=== PATIENT | female | born 1990 | race Caucasian/White ===

== ENCOUNTER 2024-03-09 16:18 | Emergency (ER) | payer OTHER ==
[~2024-03-09] VITALS: Ht 162.6 cm; Wt 108.0 kg
[~2024-03-09 16:18] MED LIST: AMOX250 PO; Ativan1 MG PO; BUPR75 PO; CEPH500 PO; CODACE30 PO; CRUTCH4 USE; DICY20 PO; FLUO20; HYDACE5 PO; Percocet 5-3251 EACH PO; RXSULTRIDS PO; SULTRIDS PO; TRIM250 PO
[2024-03-09] MEDS ORDERED: PROZAC40 MG PO (16:31)
[2024-03-09] MEDS ORDERED: METFORMIN HCL500 M3 PO (16:31)
[2024-03-09] MEDS ORDERED: ROSUVASTATIN CAL5 MG PO (16:31)
[2024-03-09] MEDS ORDERED: Inderal 20 mg T20 MG PO (16:32)
[2024-03-09] MEDS ORDERED: Metoclopramide HCl 5MG / ML 2ML Vial IV ONE (16:45)
[2024-03-09] MEDS ORDERED: Ketorolac Tromethamine 30mg Vial IV ONE (16:45)
[2024-03-09 17:36] VITALS: BP 109/67
== END 2024-03-09 17:37 | disposition home or self-care (01) ==
LOC: ER 16:18
DX: F41.0 Panic disorder [episodic paroxysmal anxiety] (principal); E11.9 Type 2 diabetes mellitus without complications; E78.5 Hyperlipidemia, unspecified; Z88.1 Allergy status to other antibiotic agents; Z79.899 Other long term (current) drug therapy
CPT/HCPCS: 96374; 96375; 99284-25; J1885; J2765

== ENCOUNTER → 2024-06-13 | Outpatient (CLI) | payer OTHER ==
[~2024-06-13] MED LIST changes: +Inderal 20 mg T20 MG PO; +METFORMIN HCL500 M3 PO; +PROZAC40 MG PO; +ROSUVASTATIN CAL5 MG PO
[2024-06-13 17:12] LABS: Candida Group, PCR NOT DETECTED (NOT DETECT); Candida glabrata-krusei, PCR NOT DETECTED (NOT DETECT)
[2024-06-13 17:29] LABS: Bacterial Vaginosis PCR Positive (NEGATIVE)
[2024-06-15 12:22] LABS: APTIMA MEDIA TYPE Unisex Swab; C. TRACHOMATIS BY TMA Negative (Negative); N. GONORRHOEAE BY TMA Negative (Negative); SPECIMEN SOURCE Vaginal
== END | disposition home or self-care (01) ==
LOC: LAB 15:08 → LAB SHORT 15:08
PROVIDERS: Physician Assistant
DX: N93.0 Postcoital and contact bleeding (principal); N72 Inflammatory disease of cervix uteri
CPT/HCPCS: 87481; 87491; 87591; 87661; 87801